=== PATIENT | female | born 1955 | race Caucasian/White ===

== ENCOUNTER 2024-02-06 09:53 | Emergency (ER) | payer MEDICARE, OTHER ==
[2024-02-06] MEDS ORDERED: Sodium Chloride 0.9% 1000 ML 1,000 ML IV ONE (09:54)
[2024-02-06] MEDS ORDERED: SODIUM BICARBONATE 50 MEQ/50 ML ABBOJECT IV ONE (10:00)
[2024-02-06] MEDS ORDERED: NARCAN 2 MG/2 ML ONE (10:00)
[2024-02-06] MEDS ORDERED: EPINEPHRINE ABBOJECT 1 MG/10 ML ONE (10:00)
[2024-02-06 11:17] LABS: ABG HEMOGLOBIN 12.6; ABG POTASSIUM 3.9 (3.5-5.1); ARTERIAL BLD GAS O2 SATURATION 95.5 % (95-100); ARTERIAL BLOOD GAS FIO2 100 %; ARTERIAL BLOOD GAS PO2 115 mmHg (75-100); CARBOXYHEMOGLOBIN 3.9 % THgb (0.0-6.9); HGB O2 SAT 91.4 g/dF (94-100); Methhemoglobin 0.4 % (1.4-1.5)
[2024-02-06 11:19] LABS: ABG SITE RIGHT RADIAL; ARTERIAL BLOOD GAS PCO2 125 mmHg (35-45)
--- NOTE | 2024-02-06 11:23 | ERPHSYRPT ---
- Events Date: 02/06/24 Time Seen by Provider: 09:49 Reason for Code Rapid: full arrest Pre-Event Complaints: found unresponsive CPR initiated prior to MD arrival: Yes Physician Note: SEE CARDIOPULMONARY RESUSCITATION FLOW SHEET FOR FULL DETAILS Pt arrived to ED via EMS who found pt unresponsive and pulseless on scene. EMS initiated CPR, achieved ROSC on scene after 1mg epi. Pt reportedly arrested again en route, ROSC again achieved w/ epi. When pt was brought into ED we were unable to obtain blood pressure reading, pulses were faint and pulse was rapidly lost - CPR was initiated x 1 round, given 1mg epinephrine, ROSC achieved after roughly 2min cpr No information was known regarding pt's current or past medical hx, no pt information was available at time of arrival CPR was performed a total of 4 times, pt received a total of 4 doses 1mg epinephrine, 2amp bicarb, 2mg narcan IV Neurologic exam on arrival was negative for spontaneous movements, no pupillary response to light, no corneal reflexes pt had Igel EGD in place on arrival w/ good breath sounds b/l, confirmed by capnography during periods of ROSC, made decision to leave EGD in place until pt was better stabilized EKG obtained after initial rosc was suggestive of afib at 109, some ST depression noted in inferior leads ABG was obtained that showed elevated pCO2, pH < 6.8, pO2 115 FAST exam showed no significant intra-abdominal bleeding or fluid collections, no sign of pericardial effusion, no sign of pneumothorax labs were obtained and ordered but were not transmitted in EMR unable to obtain cxr in time b/w episodes of CPR I spoke w/ family following each round of CPR, following 4th round of cpr pt's children made decision to not proceed w/ further resuscitation, pulses were lost again shortly after and pt neurologic exam performed w/ no signs of pupillary response, no coronary reflexes; no heart sounds or lung sounds on auscultation; POCUS showed initially spastic cardiac activity that ultimately stopped completely; no spontaneous respirations; heart tracing from monitor showing PEA Critical Care Time - Critical Care Note Total Time (mins): 70 - Progress CPR D/C'd, Patient pronounced at: 10:44
== END 2024-02-06 13:06 | disposition expired ==
LOC: MERGE 09:53 → ED 09:53
DX: I46.9 Cardiac arrest, cause unspecified (principal)
CPT/HCPCS: 36600; 82375; 82803; 83605; 92950; 93005; 94799; 96374; 96375; 99285; 99291; J0171; J2310